=== PATIENT | female | born 1950 | race Caucasian/White ===

== ENCOUNTER 2023-05-08 21:56 | Emergency (ER) | payer MEDICARE ==
[~2023-05-08] VITALS: Ht 154.9 cm; Wt 61.2 kg
[2023-05-08] MEDS ORDERED: EPINEPHrine HCL 1 MG/ML AMP IM ONE (22:05)
[2023-05-08] MEDS ORDERED: methylPREDNISolone SODIUM SUCC 125 MG/2 ML SDV IV ONE (22:05)
[2023-05-08] MEDS ORDERED: DiphenhydrAMINE HCL 50 MG/ML SDV IV ONE (22:05)
[2023-05-08] MEDS ORDERED: FAMOTIDINE 10MG/ML 2ML SDV IV ONE (22:05)
[2023-05-08 22:17] VITALS: BP 143/71
[2023-05-08 23:00] VITALS: BP 106/58
[2023-05-09] VITALS: BP 101/46
[2023-05-09 01:00] VITALS: BP 88/48
[2023-05-09 01:21] VITALS: BP 107/59
[2023-05-09] MEDS ORDERED: BENADRYL25 M1 PO (02:26)
[2023-05-09] MEDS ORDERED: PREDNISONE20 MG PO (02:26)
[2023-05-09] MEDS ORDERED: EPIPEN 2-P0.3 MG/0.3 IM (02:26)
[2023-05-09 03:18] VITALS: BP 107/59
== END 2023-05-09 03:18 | disposition home or self-care (01) ==
LOC: ED 21:56
DX: T78.40XA Allergy, unspecified, initial encounter (principal); X58.XXXA Exposure to other specified factors, initial encounter